=== PATIENT | male | born 1995 ===

== ENCOUNTER 2019-09-29 23:59 | Emergency (ER) | payer OTHER, SELFPAY ==
[2019-09-30 00:07] VITALS: BP 133/73; PULSE 65; RESP 18; TEMP 36.4; O2SAT 98; BMI 27.4
--- NOTE | 2019-09-30 00:15 | ED_ITS ---
HPI - Eye Problem General: Chief complaint: Eye Problems Stated complaint: INJURY AT WORK; EYE LACERATION Time Seen by Provider: 09/30/19 00:09 History of Present Illness: HPI Narrative: Patient is a 24-year-old male comes to the ED with a laceration over left eyebrow. Injury occurred at work and Worker's Comp. paperwork will need to be filled out. 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 He was wearing glasses but those were knocked into his left eyebrow causing laceration. He denies any vision changes or eye pain. Denies any loss of consciousness. Patient says he had his last tetanus about a year ago. Associated symptoms: Denies fever(s), headache(s), nausea, neck pain or vomiting Review of Systems Const: Denies: fever(s), chills or fatigue Eyes: Denies: change in vision or eye discomfort ENMT: Denies: throat pain, odynophagia, nasal discharge or nasal congestion Card: Denies: chest pain, palpitations, edema, swelling of feet/ankles, dyspnea on exertion or orthopnea Resp: Denies: dyspnea, productive cough or non-productive cough GI: Denies: abdominal pain, nausea, vomiting, diarrhea, constipation or hematochezia : Denies: flank pain, difficulty urinating, dysuria or hematuria Musc: Denies: neck pain, back pain or extremity swelling Skin/Breast: Reports: new lesions (Laceration over left eyebrow.); Denies: rash Neuro: Denies: headache(s), numbness in extremities or weakness in extremities [facility] ED PFSH: Social History Smoking and tobacco status: current some day smoker Physical Exam Const: COMMON NORMALS: no acute distress, patient oriented x3 and alert GENERAL APPEARANCE: cooperative and comfortable HENMT: COMMON NORMALS: normocephalic HEAD & SCALP: normocephalic FACE & SINUS: laceration left supraorbital linear, superficial, with motor nerve function intact and with sensation intact; not actively bleeding, no pulsatile bleeding and not contaminated Facial laceration size: 1 cm; no ecchymosis and no edema MOUTH: Normal oral and palatal mucosa present THROAT: posterior oropharynx normal and uvula midline Eye: COMMON NORMALS: Equal, round and reactive pupils present and EOMs intact bilaterally PERIORBITAL: periorbital findings abnormal positive left other (Superficial 1 cm laceration over left eyebrow.); no swelling and no ecchymosis PUPIL: Yes Equal, round and reactive pupils present Neck/C-Spine: COMMON NORMALS: supple GENERAL: Yes normal visual inspection Resp: COMMON NORMALS: normal respiratory effort, No retractions, No use of accessory muscles and clear to auscultation bilaterally AUSCULTATION: clear to auscultation bilaterally Cardio: COMMON NORMALS: regular rate, regular rhythm, S1 normal heart sound present, S2 normal heart sound present, No gallops present (Cardio), No clicks present (Cardio), No murmurs present (Cardio) and Peripheral pulses 2+ throughout RATE: regular rate RHYTHM: regular rhythm HEART SOUNDS: S1 normal heart sound present and S2 normal heart sound present PERIPHERAL PULSES: Peripheral pulses 2+ throughout GI: COMMON NORMALS: Normal to inspection, nondistended, normoactive bowel sounds present, Soft to palpation, non-tender and no masses PALPATION: Yes Soft to palpation : COMMON NORMALS: Yes no CVA tenderness BLADDER/KIDNEY EXAM: Yes no CVA tenderness Back/Pelvis: COMMON NORMALS: no CVA tenderness Extremity: COMMON NORMALS: normal to inspection and no pedal edema Neuro: COMMON NORMALS: patient oriented x3 and moves all extremities SENSORIUM/ORIENTATION: Yes alert Skin: TRAUMA: laceration (1cm lac over left eyebrow) linear, superficial, motor nerve function intact and sensation intact; not actively bleeding, no pulsatile bleeding and not contaminated Procedures Laceration Laceration 1: Site: face Side (If applicable): left Size (cm): 1 Description: linear and clean Depth: simple, single layer Pre-repair: irrigated extensively (w/ normal saline) Skin layer closed with: other (dermabond) Technique: other (dermabond) Course Vital Signs: Vital signs: Vital Signs Temperature 97.5 F L 09/30/19 00:07 Pulse Rate 62 09/30/19 01:56 Respiratory Rate 16 09/30/19 01:56 Blood Pressure 118/72 09/30/19 01:56 Pulse Oximetry 100 09/30/19 01:56 MDM - Eye Problem MDM Narrative: Medical decision making narrative: Patient is a 24-year-old male who comes to the ED with a laceration on left eyebrow after a workplace injury. Worker's Comp. papers were completed. Left eyebrow laceration was irrigated with normal saline and closed using Dermabond. Patient told to follow-up with PCP in 7 to 10 days for reevaluation. Discharge Plan Discharge Patient Disposition: Home, Self-Care Clinical Impression: Facial laceration Qualifiers: Encounter type: initial encounter Qualified Code(s): S01.81XA - Laceration without foreign body of other part of head, initial encounter Condition: Stable Prescriptions: No Action No Known Home Medications RF: 0 Discharge Orders: Discharge Order (Routine); Ordered 09/30/19 Ordered By: Angel Forman Discharge Diet: Regular Discharge Activity: Resume usual activity Patient Instructions: Laceration (ED), Skin Adhesive Care (ED) Activity Restrictions/Additional Instructions: Follow-up with your PCP in 7 to 10 days for reevaluation. Leave laceration site dry and covered for the first 24 hours. After that you can clean and re-bandage daily. Watch for signs of infection such as increased redness, warmth, puslike drainage. Take Tylenol or ibuprofen as needed for any pain. Discharge Date/Time: 09/30/19 01:58 Coding Level of Care Code ED Clinical Documentation Specialist for Camille Smith Exam Comprehensive
[2019-09-30 01:18] VITALS: BP 132/84; PULSE 60; RESP 16; O2SAT 97
[2019-09-30 01:56] VITALS: BP 118/72; PULSE 62; RESP 16; O2SAT 100
== END 2019-09-30 01:58 | disposition home or self-care (01) ==
PROVIDERS: Emergency Provider Physician Assistant
DX: S01.112A Laceration without foreign body of left eyelid and periocular area, initial encounter (principal); W22.8XXA Striking against or struck by other objects, initial encounter; Y99.0 Civilian activity done for income or pay; F17.210 Nicotine dependence, cigarettes, uncomplicated
CPT/HCPCS: 12011; 12345; 99282